=== PATIENT | male | born 2000 | race Caucasian/White ===

== ENCOUNTER 2021-12-25 07:22 | Emergency (ER) | payer MEDICAID ==
[~2021-12-25] VITALS: Ht 172.7 cm; Wt 83.9 kg
[2021-12-25 07:35] VITALS: BP_SYST 136
[2021-12-25] MEDS ORDERED: LIDOCAINE VISCOUS 2%, 15 ML UDC MM ONE (08:00)
[2021-12-25 08:41] VITALS: BP_SYST 128
== END 2021-12-25 08:44 | disposition home or self-care (01) ==
LOC: SED 07:22
DX: T16.1XXA Foreign body in right ear, initial encounter (principal); F12.90 Cannabis use, unspecified, uncomplicated; Z79.899 Other long term (current) drug therapy; W45.8XXA Other foreign body or object entering through skin, initial encounter; Y93.89 Activity, other specified; Y92.89 Other specified places as the place of occurrence of the external cause; Y99.8 Other external cause status
CPT/HCPCS: 99284; 69200; J2001